=== PATIENT | male | born 1950 | race Caucasian/White ===

== ENCOUNTER 2019-05-17 14:17 | Emergency (ER) | payer MEDICARE ==
[~2019-05-17] VITALS: Ht 165.1 cm; Wt 117.9 kg
--- NOTE | 2019-05-17 14:56 | PHYS DOC ---
Past History Past Medical History: Hypertension Past Surgical History: No Surgical History Smoking: Non-smoker Alcohol Use: None Drug Use: None Adult General Chief Complaint Chief Complaint: MECHANICAL FALL HPI HPI Patient is a 68-year-old male presents with bilateral knee pain, right worse than left, after falling from his bed onto the floor. He has been unable to walk since this happened. No loss of consciousness. No head trauma. Patient is not on any blood thinners. Patient was brought in by EMS. Reports the pain is severe, sharp, and worse with movement. No previous history of knee issues.[] Review of Systems Review of Systems Constitutional: Denies fever or chills [] Eyes: Denies change in visual acuity, redness, or eye pain [] HENT: Denies nasal congestion or sore throat [] Respiratory: Denies cough or shortness of breath [] Cardiovascular: No chest pain or palpitations[] GI: Denies abdominal pain, nausea, vomiting, bloody stools or diarrhea [] : Denies dysuria or hematuria [] Musculoskeletal: Denies back pain or joint pain [] Integument: Denies rash or skin lesions [] Neurologic: Denies headache, focal weakness or sensory changes [] Endocrine: Denies polyuria or polydipsia [] All other systems were reviewed and found to be within normal limits, except as documented in this note. Current Medications Current Medications Current Medications Medications (Trade) Dose Ordered Sig/[facility] Start Time Stop Time Status Last Admin Dose Admin Ketorolac Tromethamine (Toradol 30mg Vial) 30 mg 1X ONCE 05/17/19 15:00 05/17/19 15:01 Allergies Allergies Allergies Coded Allergies Type Severity Reaction Last Updated Verified No Known Drug Allergies 05/17/19 No Physical Exam Physical Exam Constitutional: Well developed, well nourished, mild discomfort, non-toxic appearance. [] HENT: Normocephalic, atraumatic, bilateral external ears normal, oropharynx moist, no oral exudates, nose normal. [] Eyes: PERRLA, EOMI, conjunctiva normal, no discharge. [] Neck: Normal range of motion, no tenderness, supple, no stridor. [] Cardiovascular:Heart rate regular rhythm, no murmur [] Lungs & Thorax: Bilateral breath sounds clear to auscultation [] Abdomen: Bowel sounds normal, soft, no tenderness, no masses, no pulsatile masses. Pelvis is stable in 3 planes[] Skin: Warm, dry, no erythema, no rash. [] Back: No tenderness, no CVA tenderness. [] Extremities: Bilateral knees show no erythema or bruising. There is diffuse tenderness. Both knees appear symmetric as far as size. There is no effusion present. Decreased active range of motion bilateral knees secondary to pain, wi th full extension, flexion of approximately 20. There is no hip tenderness. There is no varus or valgus laxity of either knee, negative drawer, negative Carmelina test. No ankle tenderness. A joint above and joined below were evaluated and were normal. The other 2 extremities show: No tenderness, no cyanosis, no clubbing, ROM intact, no edema. [] Neurologic: Alert and oriented X 3, normal motor function, normal sensory function, no focal deficits noted. [] Psychologic: Affect normal, judgement normal, mood normal. [] Current Patient Data Vital Signs Vital Signs Date Time Temp Pulse Resp B/P (MAP) Pulse Ox O2 Delivery O2 Flow Rate FiO2 05/17/19 14:23 98.2 82 18 100 Room Air EKG EKG [] Radiology/Procedures Radiology/Procedures PROCEDURE: HIP BILATERAL WITH PELVIS HIP BILATERAL WITH PELVIS History: Fall out of bed, pain Comparison: None. Findings: AP view of the pelvis and 2 additional views of bilateral hips for total of 5 views are submitted. There is degenerative change of the pubic symphysis. There are likely phleboliths in the bilateral pelvis. Joint spaces are adequate. No acute fracture or dislocation is identified by radiographs. Impression: 1. No acute osseous abnormality is identified by radiographs. PROCEDURE: KNEE BILAT 3V 3 views the bilateral knees without comparison for bilateral knee pain status post a fall. FINDINGS: There is no fracture, dislocation, or acute osseous abnormality of either knee. The left distal femoral metaphysis posteriorly there is a cortical-based discretely marginated 1 cm benign-appearing sclerotic lesion, possibly a bone island. No suspicious osseous abnormalities are identified. Multiple vascular calcification are seen. No suprapatellar joint effusions are identified. IMPRESSION: 1. No fracture or acute osseous normality. 2. Benign-appearing cortically based sclerotic lesion of the posterior left distal femoral metaphysis. [] Course & Med Decision Making Course & Med Decision Making Pertinent Labs and Imaging studies reviewed. (See chart for details) ED course: Patient arrived, was placed in bed, and tolerated exam well. He was given parenteral pain medicines. He was transported to and from radiology with any complications. After return of the negative imaging findings, these were discussed with the patient. He had decreased pain. He was able to ambulate in the emergency department. He was discharged in improved condition with all questions answered. Medical decision making: There is no evidence of a fracture or dislocation. No evidence of ligamentous instability. No evidence of patellar dislocation. No evidence of neurologic or vascular compromise.] Dragon Disclaimer Dragon Disclaimer This electronic medical record was generated, in whole or in part, using a voice recognition dictation system. Departure Departure: Impression: Primary Impression: Bilateral knee pain Disposition: HOME, SELF-CARE Condition: IMPROVED Patient Instructions: Knee Pain Additional Instructions: Follow-up with your regular doctor in 2 days. Take your medication as prescribed. Return to the ER if worsening pain, weakness, or any other concerns. Scripts Tramadol Hcl (TRAMADOL HCL) 50 Mg Tablet 50 MG PO PRN Q6HRS PRN for PAIN, #20 TAB Prov: DAVID DRISCOLL DO 05/17/19 Meloxicam (MELOXICAM) 7.5 Mg Tablet 7.5 MG PO DAILY for PAIN, #20 TAB Prov: DAVID DRISCOLL DO 05/17/19 Problem Qualifiers Primary Impression: Bilateral knee pain Chronicity: acute Qualified Codes: M25.561 - Pain in right knee; M25.562 - Pain in left knee DAVID DRISCOLL DO May 17, 2019 14:56
[2019-05-17] MEDS ORDERED: KETOROLAC 30 MG/ML VIAL. IM ONE (15:00)
--- NOTE | 2019-05-17 15:25 | RAD ---
HIP BILATERAL WITH PELVIS History: Fall out of bed, pain Comparison: None. Findings: AP view of the pelvis and 2 additional views of bilateral hips for total of 5 views are submitted. There is degenerative change of the pubic symphysis. There are likely phleboliths in the bilateral pelvis. Joint spaces are adequate. No acute fracture or dislocation is identified by radiographs. Impression: 1. No acute osseous abnormality is identified by radiographs. Electronically signed by: Leandro Lujan MD (05/17/2019 3:22 PM) [id number]
--- NOTE | 2019-05-17 15:28 | RAD ---
3 views the bilateral knees without comparison for bilateral knee pain status post a fall. FINDINGS: There is no fracture, dislocation, or acute osseous abnormality of either knee. The left distal femoral metaphysis posteriorly there is a cortical-based discretely marginated 1 cm benign-appearing sclerotic lesion, possibly a bone island. No suspicious osseous abnormalities are identified. Multiple vascular calcification are seen. No suprapatellar joint effusions are identified. IMPRESSION: 1. No fracture or acute osseous normality. 2. Benign-appearing cortically based sclerotic lesion of the posterior left distal femoral metaphysis. Electronically signed by: Talon Castillo MD (05/17/2019 3:25 PM) [facility]
[2019-05-17 16:15] VITALS: BP 110/73
[2019-05-17] MEDS ORDERED: MELO7.5T29 PO (16:18)
[2019-05-17] MEDS ORDERED: TRAM50TA PO (16:18)
== END 2019-05-17 16:32 | disposition home or self-care (01) ==
LOC: EDBD 14:17 → ER 14:17
DX: M25.561 Pain in right knee (principal); M25.562 Pain in left knee; M25.551 Pain in right hip; M25.552 Pain in left hip; G89.11 Acute pain due to trauma; I10 Essential (primary) hypertension; W06.XXXA Fall from bed, initial encounter; Y93.89 Activity, other specified; Y92.89 Other specified places as the place of occurrence of the external cause; Y99.8 Other external cause status
CPT/HCPCS: 73521; 73562; 96372; 99284; J1885

== ENCOUNTER 2020-06-01 06:38 | Emergency (ER) | payer MEDICARE ==
[~2020-06-01] VITALS: Ht 188 cm; Wt 146.5 kg
[~2020-06-01 06:38] MED LIST: MELO7.5T29 PO; TRAM50TA PO
--- NOTE | 2020-06-01 06:59 | PHYS DOC ---
Past History Past Medical History: A-Fib, Dementia, Hypertension, Hypothyroid Past Surgical History: No Surgical History Smoking: Non-smoker Alcohol Use: None Drug Use: None Adult General Chief Complaint Chief Complaint: DIARRHEA HPI HPI Patient is a 69-year-old male who presents from [facility]-way via EMS for seizure-like activity. Patient recently diagnosed with COVID-19 infection 05/22/2020 and has been on strict Covid precautions while at [facility]-way ever since. He has been having classic URI-like symptoms and softer stools. He was recently seen at [facility] 3 days ago and had full evaluation after having vasovagal episode on toilet. Patient had comprehensive laboratory work done and radiograph of the chest that was grossly unremarkable, patient was ultimately discharged back to [facility] for continued care. Nonetheless, patient has continued to have diarrhea and today, had a witnessed "seizure" that was described by staff as generalized body shaking that lasted less than 15 seconds, patient remained fully conscious, was in bed and subsequently did not hit head, no other trauma. This resolved without any intervention. This in addition to patient's ongoing diarrhea concerned staff prompting them to call EMS for transport to [facility]. [facility] diverted patient to our facility as they reportedly do not have any ICU bed capability at this time. On arrival today, patient in no acute distress, admits having softer stools than usual but is in no pain. He has dementia but appears at baseline, is awake, alert and oriented to person and place but not time. He is a full code at this time. Denies fever, chest pain, shortness of breath, abdominal pain, urinary symptoms, falls or recent trauma Review of Systems Review of Systems Fourteen body systems of review of systems have been reviewed. See HPI for pertinent positives and negative responses, other santillan all other systems are negative, non-pertinent or non-contributory Allergies Allergies Allergies Coded Allergies Type Severity Reaction Last Updated Verified No Known Drug Allergies 05/17/19 No Physical Exam Physical Exam Constitutional: Pt is oriented to person and place. Pt appears well-nourished, nontoxic-appearing HENT: Head: Normocephalic and atraumatic. Mouth/Throat: Oropharynx is clear and moist. No oropharyngeal trauma or tongue lacerations from biting No hematomas or lacerations or abrasions to face or scalp OP clear, no blood, no malocclusion, dentition intact Nares clear, no nasal septal hematoma External ears unremarkable, no gr sign Midface stable Eyes: Conjunctivae and EOM are normal. Pupils are equal, round, and reactive to light. Neck: C-spine midline nontender, no step-offs Cardiovascular: Normal rate, irregular rhythm and normal heart sounds. Pulmonary/Chest: Effort normal and breath sounds normal. No respiratory distress. No wheezes. CTA bilaterally Abdominal: Soft. Bowel sounds are normal. Pt exhibits no distension. There is no tenderness. Musculoskeletal: No bony tenderness to extremities, no deformities, full ROM extremities Chest wall stable Pelvis stable and non-tender No vertebral TTP and spine without stepoffs Neurological: Pt is alert and oriented to person and place which appears to be his baseline in dementia patient. Is knowledgeable is at ER today Moving all extremities willfully, able to wiggle all fingers and toes Sensation grossly intact Skin: Skin is warm and dry. No abrasions, no lacerations Psychiatric: Behavior is appropriate for situation Nursing note and vitals reviewed. Current Patient Data Vital Signs Vital Signs Date Time Temp Pulse Resp B/P (MAP) Pulse Ox O2 Delivery O2 Flow Rate FiO2 06/01/20 06:38 97.7 104 22 114/71 (85) 97 Room Air EKG EKG EKG ordered and interpreted by myself at 0702 hrs. as atrial fibrillation at 79 bpm, unremarkable intervals, no axis deviation, no obvious acute ischemic findings, no STEMI Radiology/Procedures Radiology/Procedures [] Heart Score HEART Score for Chest Pain: HEART Score for Chest Pain Response (Comments) Value History Slighlty/Non-Suspicious 0 ECG Normal 0 Age > 65 2 Risk Factors >3 Risk Factors or Hx CAD 2 Troponin < Normal Limit 0 Total 4 Risk Factors: Risk Factors: DM, Current or recent (<one month) smoker, HTN, HLP, family history of CAD, obesity. Risk Scores: Risk Factors: DM, Current or recent (<one month) smoker, HTN, HLP, family history of CAD, obesity. Course & Med Decision Making Course & Med Decision Making ABCs unremarkable in a nontoxic appearing patient Prior ER work-up reviewed at [facility] 3 days ago Comprehensive history and physical exam obtained with subsequent diagnostic work-up ordered Regarding patient's presenting seizure-like activity, I doubt this was a genuine seizure in etiology. Episode lasted less than 15 seconds, no signs of oropharyngeal tongue trauma and/or incontinence, patient conscious entire time and able to recall "shaking" event Patient with known COVID-19 diagnosis symptomatic with classic GI symptoms. Patient has elevated creatinine today which is not classified as MARY based on prior labs when reviewed with [facility]. 500 mL normal saline administered, patient tolerating p.o. intake Patient observed in our ER for greater than 90 minutes without any symptoms, no acute distress, well-appearing and fit for discharge with continued supportive care at [facility]-way for ongoing COVID-19 infection advised Our staff communicated to [facility]-way low suspicion for genuine seizure-like activity, if there is clinical concern we would advise outpatient follow-up with neurology for EEG etc. Strict return precautions were discussed, all questions and concerns addressed prior to ER departure back to [facility]-way facility via EMS in stable condition Dragbaudilio Disclaimer Jhoana Disclaimer This electronic medical record was generated, in whole or in part, using a voice recognition dictation system. Departure Departure: Impression: Primary Impression: COVID-19 Additional Impressions: Diarrhea Elevated serum creatinine Observed seizure-like activity Disposition: [place] HOME SELF CARE/HOMELESS Condition: STABLE Referrals: PCP,UNKNOWN (PCP) Additional Instructions: As discussed, please ensure you follow-up with your half-way physician regarding ER visit today You continue to be symptomatic from active COVID-19 infection. You were given 500 mL normal saline fluids through your IV, you are also tolerating by mouth fluids. Continue good supportive care while at half-way Regarding your observed seizure-like activity, there is low risk this was genuinely a seizure in etiology given that you were conscious throughout entire event without any other signs or symptoms of seizure. Please discuss need for EEG versus outpatient neurology follow-up with your primary care physician It was a pleasure to take care of you today and I wish you a speedy recovery Problem Qualifiers ELO RIVERA DO Jun 01, 2020 06:59
[2020-06-01] MEDS ORDERED: METOPROLOL TART IMMED RELEASE 25 MG TABLET. PO ONE (07:00)
--- NOTE | 2020-06-01 07:06 | EKG ---
[address] [address] Test Date: 2020-06-01 Test Time: 06:59:46 Pat Name: CIRO PEREZ Department: Room: Gender: M Director Regulatory Compliance: : 1950 Requested By: ELO RIVERA Order Number: [id number] Reading MD: Daniel Farah Measurements Intervals [place] Rate: 79 P: NV: QRS: 42 QRSD: 90 T: 7 QT: 390 QTc: 448 Interpretive Statements ATRIAL FIBRILLATION Electronically Signed On 06-03-2020 10:38:01 STABLE ATTENDANT by Daniel Farah
[2020-06-01 07:13] LABS: BASO % 1 % (0-3); EOS % 0 % (0-3); HEMATOCRIT 48.4 % (39.0-53.0); HEMOGLOBIN 16.1 g/dL (13.0-17.5); LYMPH # 0.7 x10^3/uL (1.0-4.8); LYMPH % 13 % (24-48); MEAN CORPUSCULAR HEMOGLOBIN 34 pg (25-35); MEAN CORPUSCULAR HGB CONC 33 g/dL (31-37); MEAN CORPUSCULAR VOLUME 101 fL (79-100); MONO # 0.4 x10^3/uL (0.0-1.1); MONO % 8 % (0-9); NEUT # 3.9 x10^3uL (1.8-7.7); NEUT % 77 % (31-73); PLATELET COUNT 149 x10^3/uL (140-400); RED CELL DISTRIBUTION WIDTH 14.1 % (11.5-14.5)
[2020-06-01 07:16] LABS: CALCIUM 8.6 mg/dL (8.5-10.1); CREATININE 2.3 mg/dL (0.7-1.3); GFR 28.2; POTASSIUM 4.3 mmol/L (3.5-5.1)
[2020-06-01 07:22] LABS: ALBUMIN 3.5 g/dL (3.4-5.0); ALBUMIN/GLOBULIN RATIO 0.8 (1.0-1.7); TOTAL BILIRUBIN 1.3 mg/dL (0.2-1.0); TOTAL PROTEIN 7.7 g/dL (6.4-8.2)
[2020-06-01] MEDS ORDERED: IV NORMAL SALINE 500ML 500 ML IV ONE (07:30)
[2020-06-01 07:45] VITALS: BP 110/80
== END 2020-06-01 08:00 | disposition home or self-care (01) ==
LOC: ER 06:38
DX: U07.1 COVID-19 (principal); R19.7 Diarrhea, unspecified; R94.5 Abnormal results of liver function studies; R56.9 Unspecified convulsions; I48.20 Chronic atrial fibrillation, unspecified; I10 Essential (primary) hypertension; E03.9 Hypothyroidism, unspecified; F03.90 Unspecified dementia, unspecified severity, without behavioral disturbance, psychotic disturbance, mood disturbance, and anxiety
CPT/HCPCS: 36415; 80053; 82947; 85025; 93005; 99284; J7040